=== PATIENT | female | born 1940 | race Caucasian/White ===

== ENCOUNTER → 2017-04-05 | Outpatient (CLI) | payer BC ==
[~2017-04-05] MED LIST: ALBUAER2 INH; ALL180 PO; CLTP PO; CONJ0.3T3 PO; FLVHFA110 INH; HYZ/50125 PO; IBUP-1050 PO; LRT5 PO; MEDR2.5T PO; VITA400C15 PO
--- NOTE | 2017-04-05 16:30 | MAMMOGRAPHY REPORT ---
BILATERAL DIGITAL SCREENING MAMMOGRAM TOMOSYNTHESIS WITH CAD: 04/05/2017 CLINICAL HISTORY: Routine screening. Patient has no complaints. TECHNIQUE: Breast tomosynthesis in addition to standard 2D mammography was performed. Current study was also evaluated with a Computer Aided Detection (CAD) system. COMPARISON: Comparison is made to exams dated: 04/17/2016 mammogram, 04/04/2016 mammogram, 03/23/2015 m ammogram, and 03/10/2014 mammogram - [facility]. BREAST COMPOSITION: There are scattered areas of fibroglandular density in both breasts. FINDINGS: No suspicious masses, calcifications, or areas of architectural distortion are noted in e ither breast. There has been no significant interval change compared to prior exams. Bilateral chasity gn appearing calcifications are not significantly changed. A linear scar marker denotes a scar on t he right upper outer breast. IMPRESSION: ACR BI-RADS CATEGORY 2: BENIGN There is no mammographic evidence of malignancy. A 1 year screening mammogram is recommended. The p atient will receive written notification of the results. Approximately 10% of breast cancers are not detected with mammography. A negative mammographic repor t should not delay biopsy if a clinically suggestive mass is present. Mary Conte M.D. /:04/05/2017 16:05:54 Sales And Service Engineer: Negra CONNER(Serjio)(Tejal)(BD), [facility] letter sent: Normal 1/2 BI-RADS Code: ACR BI-RADS Category 2: Benign
== END | disposition home or self-care (01) ==
LOC: C.MAMM 14:03
PROVIDERS: ATTEND Family Medicine
DX: Z12.31 Encounter for screening mammogram for malignant neoplasm of breast (principal)

== ENCOUNTER → 2018-04-07 | Outpatient (CLI) | payer BC ==
--- NOTE | 2018-04-08 13:18 | MAMMOGRAPHY REPORT ---
BILATERAL DIGITAL SCREENING MAMMOGRAM TOMOSYNTHESIS WITH CAD: 04/07/2018 CLINICAL HISTORY: Routine screening. Patient has no complaints. TECHNIQUE: Breast tomosynthesis in addition to standard 2D mammography was performed. Current study was also evaluated with a Computer Aided Detection (CAD) system. COMPARISON: Comparison is made to exams dated: 04/05/2017 mammogram, 04/17/2016 mammogram, 04/04/2016 m ammogram, 03/23/2015 mammogram, 03/10/2014 mammogram, and 03/09/2013 mammogram - [facility]ter. BREAST COMPOSITION: There are scattered areas of fibroglandular density in both breasts. FINDINGS: There are scattered benign rim calcifications and stable very faint punctate microcalcifica tions in the lateral aspect of each breast. Minimal vascular calcification as well. No suspicious m ass, architectural distortion or cluster of microcalcifications is seen. IMPRESSION: ACR BI-RADS CATEGORY 1: NEGATIVE There is no mammographic evidence of malignancy. A 1 year screening mammogram is recommended. The pa tient will receive written notification of the results. Approximately 10% of breast cancers are not detected with mammography. A negative mammographic report should not delay biopsy if a clinically suggestive mass is present. Dipika Braxton M.D. ay/:04/08/2018 07:44:31 Manager Office Services: Negra CONNER(Serjio)(Tejal)(BD), [facility] letter sent: Normal 1/2 BI-RADS Code: ACR BI-RADS Category 1: Negative
== END | disposition home or self-care (01) ==
LOC: C.MAMM 14:02
PROVIDERS: ATTEND Family Medicine
DX: Z12.31 Encounter for screening mammogram for malignant neoplasm of breast (principal)

== ENCOUNTER 2024-07-27 21:20 | Inpatient (IN) ==
--- NOTE | 2024-07-27 21:37 | Emergency Department Note ---
Impression & Plan SDH (subdural hematoma), Respiratory failure ED Provider Note NAME: BRETT PHIPPS AGE: 84 SEX: F : 1940 ARRIVES VIA: Ambulance INFORMANT: Patient, ED PROVIDER(S): Alli Vasquez MD CHIEF COMPLAINT: Unresponsive MEDICAL DECISION MAKING: Patient presents due to concern for unresponsiveness. Patient was assessed airway was secured. The patient did not have obvious breath sounds in the left chest and the ET tube appeared to be deep at that time. The patient did have a palpable carotid pulse. ET tube was retracted 24 cm and the patient seemed to have improvement and associated breath sounds in the left chest. Blood work was obtained at this time additional measures were made to facilitate the patient going to CAT scan [id number] BMP was ordered along with cefepime and Flagyl and sepsis protocols. Patient was [id number] BMP was unremarkable. CT of the head did show concern for large SDH with associated shift. I was very concerned about the patient's prognosis. I did speak with the and after discussion he stated that she would not want aggressive measures or surgery which may or may not entail decompression craniectomy. He was going to call his daughter to arrive here and thus we will keep the patient intubated at this time but will not pursue any additional measures. is comfortable with this plan and I did explain to him that this may be something where the patient does not survive more than minutes versus hours. He understands and the patient is DNR and no additional treatments at this time. I did speak with the on-call hospitalist Dr. Arias as well as the intensive care unit CHUYITA Burak [facility]. Patient was admitted to the intensive care unit. Blood work shows a white count of 12 with a normal hemoglobin and platelet count patient's kidney function is unremarkable with normal electrolytes. Blood sugar 152. Procalcitonin is negative. Critical Care: I have personally spent 80 minutes of critical care time in direct management of this patient. This includes bedside care, interpretation of diagnostic studies, and testing, discussion with consultants, patient, and family members, and other require inpatient management activities. This 80 minutes is in excess of all separately billable procedures. Discussion w/ other healthcare providers: Dr. Arias inpatient medicine service [facility] ICU w/ Dr. Mendoza Prior /Outside records reviewed: I reviewed part of a cardiology visit note from February 04, 2024 from Bernard Delgado. Patient with known history of A-fib and flutter. Differential diagnosis: ICH, skull fracture, medication side effect, sprain, strain, pneumonia among others were considered. Diagnostics, as interpreted by me: ECG: None Cardiac monitoring: An order was placed for continuous cardiac monitoring. The monitor shows a rate of 62 with sinus rhythm. Patient was placed on pulse oximetry Medical decision rules: None Imaging studies: I informally interpreted the patient's CT head shows large left-sided subdural with shift with formal report to follow. HPI: Patient presents via EMS due to concern for unresponsiveness. Patient was reportedly at [place] for some sort of meeting and had gone to the bathroom but not seen for a brief period of time and so did go check on the patient and she was found down and unresponsive and not breathing well with associated vomiting. EMS reports that when they got there they were concerned as the patient had vomited and she was bradycardic and they started pacing the patient. I did suggest that the patient be given atropine calcium and Narcan. They report that she is a resident at [facility] and initially was thought to be in her 60s but per review of the patient's name and date of she is in her 80s. She is on Xarelto. The patient no longer required pacing and routes but did require intubation due to concern for airway protection and unresponsiveness. They were able to get a blood pressure in the 150s and the patient's sugar was greater than 100. EMS did report they thought that she had decerebrate posturing. I did gather additional history from the patient's after her initial exam and orders being placed. He reports that she had been fine today and had just gone to the restroom and then he found her in in a virtually unresponsive state. PAST MEDICAL HISTORY: See Below PAST SURGICAL HISTORY: See Below SOCIAL HISTORY: See Below HOME MEDICATIONS: See Below ALLERGIES: See Below VITALS: See Below PHYSICAL EXAMINATION: GENERAL: Severe distress, intubated. EYE EXAM: Normal conjunctiva. PERRL, slight left greater than right anisocoria sluggish. OROPHARYNX: Moist mucus membranes, grossly normal dentition. NECK: Trachea midline, no stridor. Supple, no nuchal rigidity, no adenopathy, non-tender. No signs of meningismus. FROM of the neck with good chin to chest and neck extension. LUNGS: Clear to auscultation. Normal chest wall mechanics. HEART: NSR, no MRG. ABDOMEN: Abdomen soft, nondistended. SKIN: No rashes and no bruising. UPPER EXTREMITIES: Upper extremities are grossly normal. LOWER EXTREMITIES: Grossly normal, no edema. NEURO EXAM: GCS of 3T. Past Med/Surg History Problem List (Updated 07/27/24 @ 23:31 by Alli Vasquez MD) Respiratory failure (Acute) SDH (subdural hematoma) (Acute) Gross hematuria Abnormal PFT Upper airway cough syndrome Cough PSVT (paroxysmal supraventricular tachycardia) Paroxysmal atrial flutter Paroxysmal atrial fibrillation Sensation of chest pressure Hypertension Encounter for pre-operative examination Medical History (Updated 07/27/24 @ 23:31 by Alli Vasquez MD) Chronic back pain Osteoarthritis Basal cell carcinoma Hypertension Asthma well controlled, uses inhalers prn and have not needed since June 2019 On anticoagulant therapy Paroxysmal atrial fibrillation Surgical History Hx of left cataract extraction History of breast biopsy right History of bilateral tubal ligation History of section x2 S/P epidural steroid injection History of colonoscopy Status post Mohs surgery Family History Other No family history of adverse response to anesthesia Social History Smoking Status: Unknown if ever smoked Second Hand Exposure: No; Do You Dip or Chew Tobacco: No; Hx Alcohol Use: No Hx Substance Use: No Preferred Language: Puerto Rican Communication Ability: Effective Prn Physical Therapist Required: No Beliefs That Will Affect Care: None Current Living Situation: Spouse Feels Safe at Home: Yes Assistive Devices: Glasses Allergies Allergies Allergy/AdvReac Type Severity Reaction Status Date / Time Penicillins Allergy Mild HIVES Verified 02/05/24 10:31 FRAGRANCES Allergy Severe COUGH AND Uncoded 02/05/24 10:31 SOB Home Meds Home Medications Medication Instructions Recorded Confirmed cetirizine 10 mg tablet 10 mg PO QAM 06/22/19 12/20/22 montelukast 10 mg tablet 10 mg PO HS 06/22/19 12/20/22 rivaroxaban 20 mg tablet (Xarelto) 20 mg PO HS 07/21/19 12/20/22 multivitamin (Daily Multi-Vitamin 1 tab PO DAILY 09/15/19 12/20/22 tablet) fluticasone furoate 100 1 inh inhalation DAILY 12/18/22 12/20/22 mcg-vilanterol 25 mcg/dose inhalation powder (Breo Ellipta) Previous Rx's Medication Instructions Recorded Allergy (chlorpheniramine) 4 mg 4 mg PO Q12H cough 8 weeks #112 12/27/22 tablet (chlorpheniramine maleate) tabs fluticasone propionate 50 2 spray intranasal DAILY #16 grams 12/27/22 mcg/actuation nasal spray,suspension (Flonase Allergy Relief) diltiazem HCl 240 mg 240 mg PO QAM #90 caps 01/16/24 capsule,extended release 24 hr levalbuterol tartrate 45 1 puff inhalation Q6H PRN 02/05/24 mcg/actuation aerosol inhaler shortness of breath or wheezing (Xopenex HFA) #15 grams Results & Data (ED) Vital Signs Vital Signs - 24 hr 07/27/24 21:27 07/27/24 21:39 07/27/24 21:50 Pulse Rate 75 Pulse Rate [Finger] 67 Pulse Rhythm Pulse Rhythm [Finger] Regular Pulse Strength [Finger] Normal Respiratory Rate 23 20 Respiratory Effort / Characteristics Non-Labored Spontaneous Non-Labored Spontaneous Respiratory Depth Normal Normal Blood Pressure Blood Pressure [Right Arm] 203/118 H Blood Pressure Mean Blood Pressure Mean [Right Arm] 146 Pulse Oximetry 93 98 Oxygen Delivery Method Mechanical Vent Mechanical Vent Fraction of Inspired Oxygen Sepsis Recent Fever Within 48 Hours No Sepsis New/Unexplained Change in Mental Status N/A Sepsis Action Taken by Nursing No Action Required End-Tidal CO2 07/27/24 21:51 07/27/24 21:52 07/27/24 22:14 Pulse Rate 56 L 64 62 Pulse Rate [Finger] Pulse Rhythm Regular Pulse Rhythm [Finger] Pulse Strength [Finger] Respiratory Rate 23 18 31 H Respiratory Effort / Characteristics Respiratory Depth Blood Pressure 203/118 H Blood Pressure [Right Arm] Blood Pressure Mean 169 Blood Pressure Mean [Right Arm] Pulse Oximetry 97 99 Oxygen Delivery Method Mechanical Vent Mechanical Vent Fraction of Inspired Oxygen 60 Sepsis Recent Fever Within 48 Hours Sepsis New/Unexplained Change in Mental Status Sepsis Action Taken by Nursing End-Tidal CO2 38 33 07/27/24 22:53 Pulse Rate Pulse Rate [Finger] 49 L Pulse Rhythm Pulse Rhythm [Finger] Pulse Strength [Finger] Respiratory Rate 18 Respiratory Effort / Characteristics Respiratory Depth Blood Pressure Blood Pressure [Right Arm] 169/115 H Blood Pressure Mean Blood Pressure Mean [Right Arm] 133 Pulse Oximetry 96 Oxygen Delivery Method Mechanical Vent Fraction of Inspired Oxygen Sepsis Recent Fever Within 48 Hours Sepsis New/Unexplained Change in Mental Status Sepsis Action Taken by Nursing End-Tidal CO2 Home Medications Current Medication List: was personally reviewed by me Laboratory Data Attestation: I reviewed the patient's lab results. 07/27/24 21:33 07/27/24 21:33 Lab Results 07/27/24 07/27/24 Range/Units 21:33 21:35 WBC 12.57 H (4.8-10.8) K/ul RBC 4.31 (4.20-5.40) M/uL Hgb 13.0 (12.0-16.0) g/dl POC Hgb 13.3 (12.0-16.0) g/dl Hct 38.0 (37.0-47.0) % POC Hct 39 (37-47) % MCV 88.2 (80.0-100.0) fL MCH 30.2 (25.0-34.0) pg MCHC 34.2 (32.0-36.0) g/dL RDW Std Deviation 43.8 (36.4-46.3) fL RDW Coeff of [place] 13.3 (11.5-14.5) % Plt Count 267 (130-400) K/uL MPV 9.1 L (9.4-12.4) fL Immature Gran % (Auto) 0.4 % Neut % (Auto) 71.0 % Lymph % (Auto) 21.7 % Lee % (Auto) 5.6 % Eos % (Auto) 0.8 % Baso % (Auto) 0.5 % Neut # (Auto) 8.92 H (1.40-6.50) K/uL Lymph # (Auto) 2.73 (1.20-3.40) K/uL Lee # (Auto) 0.71 H (0.11-0.59) K/uL Eos # (Auto) 0.10 (0.00-0.50) K/uL Baso # (Auto) 0.06 (0.00-0.20) K/uL Immature Gran # (Auto) 0.05 (0.01-0.20) K/uL PT 12.1 H (9.0-12.0) Seconds INR 1.1 (0.9-1.1) APTT 27 (21-31) Seconds PTT Ratio 1.0 POC Sodium 139 (135-144) mmol/L Sodium 137 (136-145) mmol/L POC Potassium 4.0 (3.3-5.0) mmol/L Potassium 4.0 (3.5-5.1) mmol/L POC Chloride 106 (101-112) mmol/L Chloride 105 (98-107) mmol/L Carbon Dioxide 24 (21-32) mmol/L POC Total CO2 24 (24-31) mmol/L Anion Gap 8 (3-11) POC Anion Gap 14.0 L (16-25) mmol/L POC BUN 19 H (7-18) mg/dl BUN 19 (6-23) mg/dl Creatinine 0.87 (0.6-1.2) mg/dl POC Creatinine 0.9 (0.6-1.3) mg/dl Est Cr Clr Drug Dosing Not Reportable Est GFR ( Amer) 71.9 ml/min Est GFR (Non-Af Amer) 62.0 ml/min BUN/Creatinine Ratio 21.8 H (10-20) Glucose 152 H (70-99(Fasting)) mg/dl POC Glucose (other) 152 H (70-99) mg/dl Lactate 2.0 (0.4-2.0) mmol/L Calcium 10.1 (8.6-10.3) mg/dl POC Ioniz Calcium Arnold 1.33 H (1.12-1.32) mmol/l Magnesium 1.8 (1.7-2.4) mg/dl Total Bilirubin 0.4 (0.2-1.0) mg/dl Direct Bilirubin TNP AST 23 (13-39) U/L ALT 12 (7-52) U/L Alkaline Phosphatase 92 (34-104) U/L Troponin I High Sens 3.6 (0-14) pg/ml Total Protein 6.9 (6.0-8.3) gm/dl Albumin 4.0 (3.4-5.0) gm/dl Procalcitonin < 0.02 (0-0.5) ng/ml Administered Medications Discontinued Medications Sodium Chloride (Nss) 500 mls @ 999 mls/hr IV .Q31M ALAN Stop: 07/27/24 22:00 Last Admin: 07/27/24 22:49 Dose: Not Given Documented By: WILD Cefepime HCl (Maxipime) 2,000 mg in 20 mls @ 5 mls/min IV NOW STA; Protocol Stop: 07/27/24 21:33 Last Admin: 07/27/24 22:49 Dose: Not Given Documented By: WILD Metronidazole (Flagyl) 500 mg in 100 mls @ 100 mls/hr IV NOW STA; Protocol Stop: 07/27/24 22:29 Last Admin: 07/27/24 22:49 Dose: Not Given Documented By: WILD Imaging Data Radiologist's Impression: Head CT 07/27/24 21:24 CR Exam(s): CT HEAD Without Contrast EXAM: CT Head Without Intravenous Contrast CLINICAL HISTORY: Reason for exam: unresponsive. TECHNIQUE: Axial computed tomography images of the head/brain without intravenous contrast. CTDI is 29.23 mGy and DLP is 448.01 mGy-cm. Automated exposure control was utilized for the study. A dose lowering technique was utilized adhering to the principles of ALARA. COMPARISON: No relevant prior studies available. FINDINGS: Brain: There is the large acute left-sided subdural hematoma measuring 2.2 cm. There is a 1.8 cm left to right midline shift. No significant white matter disease. Ventricles: There is a trace amount of periventricular white matter low density and slight prominence of the temporal horn of the right lateral ventricle suggesting developing hydrocephalus. Bones/joints: Unremarkable. No acute fracture. Soft tissues: Unremarkable. Sinuses: Unremarkable as visualized. No acute sinusitis. Mastoid air cells: Unremarkable as visualized. No mastoid effusion. IMPRESSION: 1. There is the large acute left-sided subdural hematoma measuring 2.2 cm. There is a 1.8 cm left to right midline shift. 2. There is a trace amount of periventricular white matter low density and slight prominence of the temporal horn of the right lateral ventricle suggesting developing hydrocephalus. Communications: Call Doctor Intracranial Hemorrhage Electronically signed by: Kev Phipps MD 07/27/24 22:17 PM Discharge Plan Visit Data Chief Complaint: Unresponsive Stated Complaint: UNRESPONSIVE ED Provider: Alli Vasquez Discharge Problem: SDH (subdural hematoma), Respiratory failure Forms Stand Alone Forms: [facility] Prescriptions Prescriptions: No Action diltiazem HCl 240 mg capsule,extended release 24hr 240 mg PO QAM Qty: 90 3RF cetirizine 10 mg tablet 10 mg PO QAM montelukast 10 mg tablet 10 mg PO HS multivitamin [Daily Multi-Vitamin] tablet 1 tab PO DAILY fluticasone propionate [Flonase Allergy Relief] 50 mcg/actuation spray,suspension 2 spray intranasal DAILY Qty: 16 3RF Rx Instructions: administer into each nostril chlorpheniramine maleate [Allergy (chlorpheniramine)] 4 mg tablet 4 mg PO Q12H 56 Days Qty: 112 0RF Xarelto 20 mg tablet 20 mg PO HS fluticasone furoate-vilanterol [Breo Ellipta] 100-25 mcg/dose blister with device 1 inh inhalation DAILY levalbuterol tartrate [Xopenex HFA] 45 mcg/actuation HFA aerosol inhaler 1 puff INH Q6H PRN (Reason: shortness of breath or wheezing) Qty: 15 11RF Referrals Referrals: Vadim Dotson [Non-Staff] - Discharge Problem: Respiratory failure Qualifiers: Chronicity: acute Respiratory failure complication: unspecified whether with hypoxia or hypercapnia Qualified Code(s): J96.00 - Acute respiratory failure, unspecified whether with hypoxia or hypercapnia
[2024-07-27 21:48] LABS: Basophils # (auto) 0.06 K/uL (0.00-0.20); Basophils % (auto) 0.5 %; Eosinophils % (auto) 0.8 %; Immature Granulocytes # (auto) 0.05 K/uL (0.01-0.20); Immature Granulocytes % (auto) 0.4 %; Lymphocytes # (auto) 2.73 K/uL (1.20-3.40); Lymphocytes % (auto) 21.7 %; Mean Corpuscular Hemoglobin 30.2 pg (25.0-34.0); Mean Corpuscular Hgb Conc 34.2 g/dL (32.0-36.0); Mean Corpuscular Volume 88.2 fL (80.0-100.0); Mean Platelet Volume 9.1 fL (9.4-12.4); Monocytes # (auto) 0.71 K/uL (0.11-0.59); Monocytes % (auto) 5.6 %; Neutrophils # (auto) 8.92 K/uL (1.40-6.50); Platelet Count 267 K/uL (130-400); RDW Coefficient of Variation 13.3 % (11.5-14.5); RDW Standard Deviation 43.8 fL (36.4-46.3); Red Blood Count 4.31 M/uL (4.20-5.40); White Blood Count 12.57 K/ul (4.8-10.8)
[2024-07-27 21:48] LABS: iSTAT Creatinine 0.9 mg/dl (0.6-1.3); iSTAT Hemoglobin 13.3 g/dl (12.0-16.0); iSTAT Ionized Calcium 1.33 mmol/l (1.12-1.32)
[2024-07-27 22:15] LABS: Alanine Aminotransferase 12 U/L (7-52); Alkaline Phosphatase 92 U/L (34-104); Anion Gap 8 (3-11); Aspartate Aminotransferase 23 U/L (13-39); BUN Creatinine Ratio 21.8 (10-20); Bilirubin,Total 0.4 mg/dl (0.2-1.0); Blood Urea Nitrogen 19 mg/dl (6-23); Calcium 10.1 mg/dl (8.6-10.3); Carbon Dioxide 24 mmol/L (21-32); Chloride 105 mmol/L (98-107); Est GFR (African American) 71.9 ml/min; Glucose 152 mg/dl (70-99(Fasting)); INR 1.1 (0.9-1.1); Magnesium 1.8 mg/dl (1.7-2.4); Partial Thromboplastin Time 27 Seconds (21-31); Prothrombin Time 12.1 Seconds (9.0-12.0); Sodium 137 mmol/L (136-145); Total Protein 6.9 gm/dl (6.0-8.3); Troponin I High Sensitivity 3.6 pg/ml (0-14)
--- NOTE | 2024-07-27 22:18 | CT Scan Report ---
Exam(s): CT HEAD Without Contrast EXAM: CT Head Without Intravenous Contrast CLINICAL HISTORY: Reason for exam: unresponsive. TECHNIQUE: Axial computed tomography images of the head/brain without intravenous contrast. CTDI is 29.23 mGy and DLP is 448.01 mGy-cm. Automated exposure control was utilized for the study. A dose lowering technique was utilized adhering to the principles of ALARA. COMPARISON: No relevant prior studies available. FINDINGS: Brain: There is the large acute left-sided subdural hematoma measuring 2.2 cm. There is a 1.8 cm left to right midline shift. No significant white matter disease. Ventricles: There is a trace amount of periventricular white matter low density and slight prominence of the temporal horn of the right lateral ventricle suggesting developing hydrocephalus. Bones/joints: Unremarkable. No acute fracture. Soft tissues: Unremarkable. Sinuses: Unremarkable as visualized. No acute sinusitis. Mastoid air cells: Unremarkable as visualized. No mastoid effusion. IMPRESSION: 1. There is the large acute left-sided subdural hematoma measuring 2.2 cm. There is a 1.8 cm left to right midline shift. 2. There is a trace amount of periventricular white matter low density and slight prominence of the temporal horn of the right lateral ventricle suggesting developing hydrocephalus. Communications: Call Doctor Intracranial Hemorrhage Electronically signed by: Kev Phipps MD 07/27/24 22:17 PM
[2024-07-27] MEDS: SODIUM CHLORIDE 0.9% 500 ML IV SCH (22:49)
[2024-07-27] MEDS: metroNIDAZOLE 500 MG/100 ML BAG IV STA (22:49)
[2024-07-27] MEDS: CEFEPIME 2,000 MG/20 ML VIAL IV STA (22:49)
[2024-07-27 23:32] LABS: Adenovirus PCR Not Detected (NotDetected); Bordetella parapertussis PCR Not Detected (NotDetected); Bordetella pertussis PCR Not Detected (NotDetected); Chlamydia pneumoniae PCR Not Detected (NotDetected); Coronavirus 229E PCR Not Detected (NotDetected); Coronavirus CoV-2 (COVID19)PCR Not Detected (NotDetected); Coronavirus HKU1 PCR Not Detected (NotDetected); Coronavirus NL63 PCR Not Detected (NotDetected); Coronavirus OC43PCR Not Detected (NotDetected); Human Metapneumovirus PCR Not Detected (NotDetected); Influenza A PCR Not Detected (NotDetected); Influenza B PCR Not Detected (NotDetected); Mycoplasma pneumoniae PCR Not Detected (NotDetected); Parainfluenza Virus 1 PCR Not Detected (NotDetected); Parainfluenza Virus 2 PCR Not Detected (NotDetected); Parainfluenza Virus 3 PCR Not Detected (NotDetected); Parainfluenza Virus 4 PCR Not Detected (NotDetected); Respiratory Syncytial VirusPCR Not Detected (NotDetected); Rhinovirus/Enterovirus PCR Not Detected (NotDetected)
--- NOTE | 2024-07-27 23:50 | History & Physical Report ---
Date of Service July 27, 2024 Assessment & Plan (1) Admitted to intensive care unit: (2) SDH (subdural hematoma): (3) Respiratory failure: (4) Paroxysmal atrial fibrillation: (5) Paroxysmal atrial flutter: (6) Hypertension: Plan Large subdural hematoma- CT scan of head with large acute left-sided subdural hematoma measuring 2.2 cm. There is a 1.8 cm left to right midline shift Patient is intubated, on the ventilator, and admitted to the ICU NPO Family members are coming in from out of town, and request patient be kept intubated until other family members are here Paroxysmal atrial fibrillation/flutter- Patient is bradycardic while in the ED, with heart rate in the upper 40s to 50s Holding oral medications including Xarelto, diltiazem Expect the patient will be changed to GOLF COURSE ASSISTANT once all family members are here and family discusses ongoing wishes History of Present Illness Chief Complaint: The patient's reports that he found the patient slumped backward on the commode in the restroom at [facility] where she was at a meeting, earlier this evening. He called emergency services, who when assessed the patient and found that she was bradycardic and had vomited, and she was externally paced. She was given atropine, calcium and Narcan. She was intubated for airway protection, and due to unresponsiveness. EMS also reported to that they thought she had decerebrate posturing. In the emergency department, patient underwent a CT scan of head which showed a large left subdural hematoma, with shift. Primary Care Provider: Lino Fan MD The patient is an 84-year-old female with a past medical history including paroxysmal atrial fibrillation/flutter, hypertension, COPD, allergic rhinitis, on chronic anticoagulation, who was found unresponsive as noted above. CT scan of head showed a large subdural hematoma with shift. The patient is intubated, and family wishes that she be kept alive until her daughter arrives from out of town. Allergies Allergy/AdvReac Type Severity Reaction Status Date / Time Penicillins Allergy Mild HIVES Verified 02/05/24 10:31 FRAGRANCES Allergy Severe COUGH AND Uncoded 02/05/24 10:31 SOB Home Medications Medication Instructions Recorded Confirmed Type cetirizine 10 mg tablet 10 mg PO QAM 06/22/19 12/20/22 History montelukast 10 mg tablet 10 mg PO HS 06/22/19 12/20/22 History rivaroxaban 20 mg tablet (Xarelto) 20 mg PO HS 07/21/19 12/20/22 History multivitamin (Daily Multi-Vitamin 1 tab PO DAILY 09/15/19 12/20/22 History tablet) fluticasone furoate 100 1 inh inhalation DAILY 12/18/22 12/20/22 History mcg-vilanterol 25 mcg/dose inhalation powder (Breo Ellipta) Allergy (chlorpheniramine) 4 mg 4 mg PO Q12H cough 8 weeks #112 12/27/22 12/27/22 Rx tablet (chlorpheniramine maleate) tabs fluticasone propionate 50 2 spray intranasal DAILY #16 grams 12/27/22 12/27/22 Rx mcg/actuation nasal spray,suspension (Flonase Allergy Relief) diltiazem HCl 240 mg 240 mg PO QAM #90 caps 01/16/24 Rx capsule,extended release 24 hr levalbuterol tartrate 45 1 puff inhalation Q6H PRN 02/05/24 02/05/24 Rx mcg/actuation aerosol inhaler shortness of breath or wheezing (Xopenex HFA) #15 grams Past Med/Surg History Problem List (Updated 07/28/24 @ 02:53 by Carlos Lawler MD) Admitted to intensive care unit Respiratory failure (Acute) SDH (subdural hematoma) (Acute) Gross hematuria Abnormal PFT Upper airway cough syndrome Cough PSVT (paroxysmal supraventricular tachycardia) Paroxysmal atrial flutter Paroxysmal atrial fibrillation Sensation of chest pressure Hypertension Encounter for pre-operative examination Medical History (Updated 07/28/24 @ 02:53 by Carlos Lawler MD) Chronic back pain Osteoarthritis Basal cell carcinoma Hypertension Asthma well controlled, uses inhalers prn and have not needed since June 2019 On anticoagulant therapy Paroxysmal atrial fibrillation Surgical History Hx of left cataract extraction History of breast biopsy right History of bilateral tubal ligation History of section x2 S/P epidural steroid injection History of colonoscopy Status post Mohs surgery Family History Other No family history of adverse response to anesthesia Social History Smoking Status: Unknown if ever smoked Second Hand Exposure: No; Do You Dip or Chew Tobacco: No; Hx Alcohol Use: No Hx Substance Use: No Preferred Language: Latvian Communication Ability: Impaired Communication Ability Comment: impaired due to medical reason at this time Business Analyst Required: No Beliefs That Will Affect Care: None Current Living Situation: Spouse Other Information That Helps Us Care for You: No Feels Safe at Home: Yes Safety Concerns: Feels Safe At This Time Assistive Devices: Glasses Review of Systems Review of Systems: The patient is unable to contribute HPI or review of systems due to unresponsive and intubated state. Her and EMS provides information as noted above Physical Exam Physical Exam: The patient is unresponsive, and intubated on the ventilator. HEENT--PERRL, EOMI, mucous membranes and oropharynx dry. Neck--supple. No JVD. No bruits. Thyroid normal, trachea midline, no adenopathy. Heart--bradycardic. No murmurs, rubs or gallops. Lungs--decreased breath sounds left base. No respiratory distress, no accessory muscle use. Abdomen--normal bowel sounds and soft. Nontender. Nondistended. Obese Extremities--No edema. Dermatologic--normal skin turgor, normal color, no abnormal lymph nodes, no rash. Neurologic--limited exam. Rheumatologic--limited exam Psychiatric--unresponsive and intubated Results & Data Results & Data Vital Signs (Past 12 Hours) Vital Signs Pulse Pulse Resp BP BP Pulse Ox O2 Del Method 07/27/24 22:53 49 L 18 169/115 H 96 Mechanical Vent 07/27/24 22:14 62 31 H 99 07/27/24 21:52 64 18 Mechanical Vent 07/27/24 21:51 56 L 23 203/118 H 97 Mechanical Vent 07/27/24 21:50 67 20 203/118 H 98 Mechanical Vent 07/27/24 21:39 23 93 Mechanical Vent 07/27/24 21:27 75 FiO2 07/27/24 22:53 07/27/24 22:14 60 07/27/24 21:52 07/27/24 21:51 07/27/24 21:50 07/27/24 21:39 07/27/24 21:27 Laboratory Results Laboratory Results WBC 12.57 K/ul (4.8-10.8) H 07/27/24 21:33 RBC 4.31 M/uL (4.20-5.40) 07/27/24 21:33 Hgb 13.0 g/dl (12.0-16.0) 07/27/24 21:33 POC Hgb 13.3 g/dl (12.0-16.0) 07/27/24 21:35 Hct 38.0 % (37.0-47.0) 07/27/24 21:33 POC Hct 39 % (37-47) 07/27/24 21:35 MCV 88.2 fL (80.0-100.0) 07/27/24 21:33 MCH 30.2 pg (25.0-34.0) 07/27/24 21:33 MCHC 34.2 g/dL (32.0-36.0) 07/27/24 21:33 RDW Std Deviation 43.8 fL (36.4-46.3) 07/27/24 21:33 RDW Coeff of [place] 13.3 % (11.5-14.5) 07/27/24 21:33 Plt Count 267 K/uL (130-400) 07/27/24 21:33 MPV 9.1 fL (9.4-12.4) L 07/27/24 21:33 Immature Gran % (Auto) 0.4 % 07/27/24 21:33 Neut % (Auto) 71.0 % 07/27/24 21:33 Lymph % (Auto) 21.7 % 07/27/24 21:33 Sutton % (Auto) 5.6 % 07/27/24 21:33 Eos % (Auto) 0.8 % 07/27/24 21:33 Baso % (Auto) 0.5 % 07/27/24 21:33 Neut # (Auto) 8.92 K/uL (1.40-6.50) H 07/27/24 21:33 Lymph # (Auto) 2.73 K/uL (1.20-3.40) 07/27/24 21:33 Sutton # (Auto) 0.71 K/uL (0.11-0.59) H 07/27/24 21:33 Eos # (Auto) 0.10 K/uL (0.00-0.50) 07/27/24 21:33 Baso # (Auto) 0.06 K/uL (0.00-0.20) 07/27/24 21:33 Immature Gran # (Auto) 0.05 K/uL (0.01-0.20) 07/27/24 21:33 PT 12.1 Seconds (9.0-12.0) H 07/27/24 21:33 INR 1.1 (0.9-1.1) 07/27/24 21:33 APTT 27 Seconds (21-31) 07/27/24 21:33 PTT Ratio 1.0 07/27/24 21:33 POC Sodium 139 mmol/L (135-144) 07/27/24 21:35 Sodium 137 mmol/L (136-145) 07/27/24 21:33 POC Potassium 4.0 mmol/L (3.3-5.0) 07/27/24 21:35 Potassium 4.0 mmol/L (3.5-5.1) 07/27/24 21:33 POC Chloride 106 mmol/L (101-112) 07/27/24 21:35 Chloride 105 mmol/L (98-107) 07/27/24 21:33 Carbon Dioxide 24 mmol/L (21-32) 07/27/24 21:33 POC Total CO2 24 mmol/L (24-31) 07/27/24 21:35 Anion Gap 8 (3-11) 07/27/24 21:33 POC Anion Gap 14.0 mmol/L (16-25) L 07/27/24 21:35 POC BUN 19 mg/dl (7-18) H 07/27/24 21:35 BUN 19 mg/dl (6-23) 07/27/24 21:33 Creatinine 0.87 mg/dl (0.6-1.2) 07/27/24 21:33 POC Creatinine 0.9 mg/dl (0.6-1.3) 07/27/24 21:35 Est Cr Clr Drug Dosing Not Reportable 07/27/24 21:33 Est GFR ( Amer) 71.9 ml/min 07/27/24 21:33 Est GFR (Non-Af Amer) 62.0 ml/min 07/27/24 21:33 BUN/Creatinine Ratio 21.8 (10-20) H 07/27/24 21:33 Glucose 152 mg/dl (70-99(Fasting)) H 07/27/24 21:33 POC Glucose (other) 152 mg/dl (70-99) H 07/27/24 21:35 Lactate 2.0 mmol/L (0.4-2.0) 07/27/24 21:33 Calcium 10.1 mg/dl (8.6-10.3) 07/27/24 21:33 POC Ioniz Calcium Arnold 1.33 mmol/l (1.12-1.32) H 07/27/24 21:35 Magnesium 1.8 mg/dl (1.7-2.4) 07/27/24 21:33 Total Bilirubin 0.4 mg/dl (0.2-1.0) 07/27/24 21:33 Direct Bilirubin TNP 07/27/24 21:33 AST 23 U/L (13-39) 07/27/24 21:33 ALT 12 U/L (7-52) 07/27/24 21:33 Alkaline Phosphatase 92 U/L (34-104) 07/27/24 21:33 Troponin I High Sens 3.6 pg/ml (0-14) 07/27/24 21:33 Total Protein 6.9 gm/dl (6.0-8.3) 07/27/24 21:33 Albumin 4.0 gm/dl (3.4-5.0) 07/27/24 21:33 Procalcitonin < 0.02 ng/ml (0-0.5) 07/27/24 21:33 Nasal Screen MRSA (PCR) Negative (Negative) 07/27/24 21:55 Adenovirus (PCR) Not Detected (NotDetected) 07/27/24 21:55 B. pertussis DNA (PCR) Not Detected (NotDetected) 07/27/24 21:55 B.parapertussis DNA PCR Not Detected (NotDetected) 07/27/24 21:55 C. pneumoniae DNA (PCR) Not Detected (NotDetected) 07/27/24 21:55 Coronavirus OC43 (PCR) Not Detected (NotDetected) 07/27/24 21:55 Coronavirus HKU1 (PCR) Not Detected (NotDetected) 07/27/24 21:55 Coronavirus 229E (PCR) Not Detected (NotDetected) 07/27/24 21:55 SARS-CoV-2 (PCR) Not Detected (NotDetected) 07/27/24 21:55 Coronavirus NL63 (PCR) Not Detected (NotDetected) 07/27/24 21:55 Human Metapneumovir PCR Not Detected (NotDetected) 07/27/24 21:55 Influenza Type A (PCR) Not Detected (NotDetected) 07/27/24 21:55 Influenza Type B (PCR) Not Detected (NotDetected) 07/27/24 21:55 M. pneumoniae (PCR) Not Detected (NotDetected) 07/27/24 21:55 Parainfluenza 1 (PCR) Not Detected (NotDetected) 07/27/24 21:55 Parainfluenza 2 (PCR) Not Detected (NotDetected) 07/27/24 21:55 Parainfluenza 3 (PCR) Not Detected (NotDetected) 07/27/24 21:55 Parainfluenza 4 (PCR) Not Detected (NotDetected) 07/27/24 21:55 RSV (PCR) Not Detected (NotDetected) 07/27/24 21:55 Entero/Rhino (PCR) Not Detected (NotDetected) 07/27/24 21:[address] 07/27/24 21:24 CR Exam(s): CT HEAD Without Contrast EXAM: CT Head Without Intravenous Contrast CLINICAL HISTORY: Reason for exam: unresponsive. TECHNIQUE: Axial computed tomography images of the head/brain without intravenous contrast. CTDI is 29.23 mGy and DLP is 448.01 mGy-cm. Automated exposure control was utilized for the study. A dose lowering technique was utilized adhering to the principles of ALARA. COMPARISON: No relevant prior studies available. FINDINGS: Brain: There is the large acute left-sided subdural hematoma measuring 2.2 cm. There is a 1.8 cm left to right midline shift. No significant white matter disease. Ventricles: There is a trace amount of periventricular white matter low density and slight prominence of the temporal horn of the right lateral ventricle suggesting developing hydrocephalus. Bones/joints: Unremarkable. No acute fracture. Soft tissues: Unremarkable. Sinuses: Unremarkable as visualized. No acute sinusitis. Mastoid air cells: Unremarkable as visualized. No mastoid effusion. IMPRESSION: 1. There is the large acute left-sided subdural hematoma measuring 2.2 cm. There is a 1.8 cm left to right midline shift. 2. There is a trace amount of periventricular white matter low density and slight prominence of the temporal horn of the right lateral ventricle suggesting developing hydrocephalus. Communications: Call Doctor Intracranial Hemorrhage Electronically signed by: Kev Phipps MD 07/27/24 22:17 PM Code Status & VTE Plan Code Status Conditional code Patient is DNR, presently intubated VTE Prophylaxis Plan VTE Prophylaxis will be ordered: Yes PG Care Time/CCT Total # of Minutes Spent Total Time Spent with Patient: Total time spent is greater than 50% in coordination of care (as documented) at patient's floor/unit and/or counseling patient: Coding Level of Care Code 21165 INT INP/OBS CARE 2/55MIN Diagnoses Admitted to intensive care unit Z78.9 SDH (subdural hematoma) S06.5XAA Respiratory failure J96.00 Chronicity: acute Respiratory failure complication: unspecified whether with hypoxia or hypercapnia Paroxysmal atrial fibrillation I48.0 Paroxysmal atrial flutter I48.92 Primary hypertension I10 Hypertension type: primary hypertension (3) Respiratory failure Chronicity: acute Respiratory failure complication: unspecified whether with hypoxia or hypercapnia Qualified Code(s): J96.00 - Acute respiratory failure, unspecified whether with hypoxia or hypercapnia (6) Hypertension Hypertension type: primary hypertension Qualified Code(s): I10 - Essential (primary) hypertension
[2024-07-28] MEDS ORDERED: STAT IV Infusion **Titration per Protocol STA (01:22)
[2024-07-28 01:27] VITALS: TEMP 97.9
--- NOTE | 2024-07-28 01:31 | Critical Care Consultation ---
Date of Consultation July 28, 2024 Assessment & Plan (1) SDH (subdural hematoma): 84-year-old female with subdural hematoma and large right to left shift with evidence of hydrocephalus seen on CT scan. She is currently posturing and does not follow commands or displaying meaningful movement. It appears that she is offered severe neurological injury with poor prognosis given extent of bleed and neurological exam. Patient's family at the bedside expressed that she would not want life-prolonging measures in the event of severe neurological injury. Patient had previously been intubated as she was unresponsive and is currently mechanically ventilated. Her daughter was approximately 2 hours away, and family was waiting her arrival prior to palliative extubation. Further decisions regarding goals of care were discussed at the bedside and included myself, the patient's , and the patient's daughter. Both family members are in agreements to palliatively extubate after being informed of the patient's poor prognosis, stating that this would be within her wishes. Both and daughter are going home for the evening and wished to proceed with palliative extubation/comfort measures, and wished to be informed when the patient passes. At this time, we will proceed with CLOTH EDGE SINGER measures with palliative extubation along with morphine drip to ensure patient's comfort. I have personally spent 50 minutes of critical care time in the direct management of this patient. This is a life/limb threatening event. This includes time spent evaluating patient, direct bedside care, chart review, placing orders, interpretation of diagnostic studies, discussion with consultants, patient, and family members, as well as other required patient management activities. This time is exclusive of all separately billable procedures, and teaching time and separate from and in addition to any other critical care service time. Thank you for allowing us to participate in the care of this patient. Please refer to my attending physician's documentation for any further recommendations. History of Present Illness Attending Physician: Carlos Lawler MD History of Present Illness Patient is a 84-year-old female W/ PMH of atrial fibrillation, SVT, HTN who presented to the emergency department earlier this evening after being found down and unresponsive while going to the bathroom. Patient was noted to have vomited at the time. She was brought to the emergency department and was emergently intubated. She was taken for CT head, Which showed large left-sided subdural hematoma measuring 2.2 cm with 1.8 cm left to right midline shift with evidence of developing hydrocephalus. Chest x-ray showed evidence of lower lobe infiltrate consistent with aspiration. Given extent of bleed, goals of care were discussed with patient's and ED physician. In conclusion, decision was made to palliatively extubate once the patient's daughter arrives who is about 2 hours away. She has been transferred to ICU for further management pending arrival of other family. Allergies Allergy/AdvReac Type Severity Reaction Status Date / Time Penicillins Allergy Mild HIVES Verified 02/05/24 10:31 FRAGRANCES Allergy Severe COUGH AND Uncoded 02/05/24 10:31 SOB Home Medications Medication Instructions Recorded Confirmed Type cetirizine 10 mg tablet 10 mg PO QAM 06/22/19 12/20/22 History montelukast 10 mg tablet 10 mg PO HS 06/22/19 12/20/22 History rivaroxaban 20 mg tablet (Xarelto) 20 mg PO HS 07/21/19 12/20/22 History multivitamin (Daily Multi-Vitamin 1 tab PO DAILY 09/15/19 12/20/22 History tablet) fluticasone furoate 100 1 inh inhalation DAILY 12/18/22 12/20/22 History mcg-vilanterol 25 mcg/dose inhalation powder (Breo Ellipta) Allergy (chlorpheniramine) 4 mg 4 mg PO Q12H cough 8 weeks #112 12/27/22 12/27/22 Rx tablet (chlorpheniramine maleate) tabs fluticasone propionate 50 2 spray intranasal DAILY #16 grams 12/27/22 12/27/22 Rx mcg/actuation nasal spray,suspension (Flonase Allergy Relief) diltiazem HCl 240 mg 240 mg PO QAM #90 caps 01/16/24 Rx capsule,extended release 24 hr levalbuterol tartrate 45 1 puff inhalation Q6H PRN 02/05/24 02/05/24 Rx mcg/actuation aerosol inhaler shortness of breath or wheezing (Xopenex HFA) #15 grams Patient History Medical History (Updated 07/28/24 @ 02:53 by Carlos Lawelr MD) Chronic back pain Osteoarthritis Basal cell carcinoma Hypertension Asthma well controlled, uses inhalers prn and have not needed since June 2019 On anticoagulant therapy Paroxysmal atrial fibrillation Surgical History Hx of left cataract extraction History of breast biopsy right History of bilateral tubal ligation History of section x2 S/P epidural steroid injection History of colonoscopy Status post Mohs surgery Family History Other No family history of adverse response to anesthesia Social History Smoking Status: Unknown if ever smoked Second Hand Exposure: No; Do You Dip or Chew Tobacco: No; Hx Alcohol Use: No Hx Substance Use: No Preferred Language: Icelandic Communication Ability: Impaired Communication Ability Comment: impaired due to medical reason at this time Building Construction Estimator Required: No Beliefs That Will Affect Care: None Current Living Situation: Spouse Other Information That Helps Us Care for You: No Feels Safe at Home: Yes Safety Concerns: Feels Safe At This Time Assistive Devices: Glasses Review of Systems Review of Systems: Unobtainable due to cognitive status and Unobtainable due to endotracheal tube Physical Exam Constitutional: + mechanically ventilated; no acute dist ress Eyes: Pupils sluggish and unequal with right pupil +3 and left pupil +4. Conjunctive normal ENMT: external ear and nose normal, oropharynx normal Neck: trachea midline, no thyromegaly Respiratory: normal respiratory effort, lungs clear to auscultation Cardiovascular: RRR, no murmur, no edema Heart Sounds: normal S1 and normal S2 Extremities: no edema Gastrointestinal (Abdomen): normal bowel sounds, soft, nontender, no hepatosplenomegaly Musculoskeletal: no cyanosis or clubbing, extremities motor strength 5/5 Skin: no rashes, warm and dry Neurologic: Exam limited due to ET tube. Patient is currently on responsive with posturing movements in all 4 extremities to noxious stimuli. She does not follow commands. Cough and corneals intact but no gag reflex. Pupils are unequal with right pupil +3 and left pupil +4 and are sluggish to react. Psychiatric: Unable to assess Results & Data Results & Data Vital Signs (Past 12 Hours) Vital Signs Pulse Pulse Resp BP BP Pulse Ox O2 Del Method 07/28/24 00:47 64 33 H 96 07/28/24 00:00 54 L 22 184/131 H 99 Mechanical Vent 07/27/24 22:53 49 L 18 169/115 H 96 Mechanical Vent 07/27/24 22:14 62 31 H 99 07/27/24 21:52 64 18 Mechanical Vent 07/27/24 21:51 56 L 23 203/118 H 97 Mechanical Vent 07/27/24 21:50 67 20 203/118 H 98 Mechanical Vent 07/27/24 21:39 23 93 Mechanical Vent 07/27/24 21:27 75 FiO2 07/28/24 00:47 60 07/28/24 00:00 07/27/24 22:53 07/27/24 22:14 60 07/27/24 21:52 07/27/24 21:51 07/27/24 21:50 07/27/24 21:39 07/27/24 21:27 Diagnostic Findings EXAM: CT Head Without Intravenous Contrast CLINICAL HISTORY: Reason for exam: unresponsive. TECHNIQUE: Axial computed tomography images of the head/brain without intravenous contrast. CTDI is 29.23 mGy and DLP is 448.01 mGy-cm. Automated exposure control was utilized for the study. A dose lowering technique was utilized adhering to the principles of ALARA. COMPARISON: No relevant prior studies available. FINDINGS: Brain: There is the large acute left-sided subdural hematoma measuring 2.2 cm. There is a 1.8 cm left to right midline shift. No significant white matter disease. Ventricles: There is a trace amount of periventricular white matter low density and slight prominence of the temporal horn of the right lateral ventricle suggesting developing hydrocephalus. Bones/joints: Unremarkable. No acute fracture. Soft tissues: Unremarkable. Sinuses: Unremarkable as visualized. No acute sinusitis. Mastoid air cells: Unremarkable as visualized. No mastoid effusion. IMPRESSION: 1. There is the large acute left-sided subdural hematoma measuring 2.2 cm. There is a 1.8 cm left to right midline shift. 2. There is a trace amount of periventricular white matter low density and slight prominence of the temporal horn of the right lateral ventricle suggesting developing hydrocephalus. Communications: Call Doctor Intracranial Hemorrhage Electronically signed by: Kev Phipps MD 07/27/24 22:17 PM Coding Level of Care Code 20513 CRITICAL CARE 1ST 30-74M Diagnoses SDH (subdural hematoma) S06.5XAA
[2024-07-28] MEDS: MoRPHine SULF/NSS 100 MG/100 ML BAG IV SCH (01:49)
[2024-07-28] MEDS: MoRPHine BOLUS from BAG IV PRN (01:52)
[2024-07-28] MEDS: ONDANSETRON INJ 2 MG/ML 2 ML VIAL IV PRN (03:48)
[2024-07-28 04:24] VITALS: BP 154/84; PULSE 61; RESP 21; O2SAT 87
[2024-07-28] MEDS ORDERED: ICU Protocol for HYPERglycemia SCH (06:00)
[2024-07-28] MEDS ORDERED: ONDANSETRON INJ 2 MG/ML 2 ML VIAL IV PRN (06:00)
[2024-07-28] MEDS: GLYCOPYRROLATE 0.2 MG/ML VIAL IV PRN (06:09)
--- NOTE | 2024-07-28 06:54 | XRay Report ---
SUPINE PORTABLE AP CHEST RADIOGRAPH CLINICAL HISTORY: Sepsis. COMPARISON STUDY: Chest radiograph December 17, 2022. FINDINGS: Tip of endotracheal tube is at the malou. The tube could be withdrawn 2.5 cm. There is no pneumothorax on supine exam. Multifocal left lung opacities are present. Cardiomediastinal silhouette is unremarkable on supine exam. No evidence for pulmonary edema. IMPRESSION: 1. Tip of endotracheal tube at the malou. The tube could be withdrawn 2.5 cm. 2. Multifocal opacities which could reflect atelectasis or pneumonia/aspiration pneumonitis. [facility] follow-up to ensure resolution is recommended. 3. No pneumothorax. ACT 112: Negative or not required by law. Electronically signed by: Charan Molina M.D. 07/28/2024 6:53 AM
[2024-07-28] MEDS: LORazepam 2 MG/1 ML VIAL IV PRN (08:42)
[2024-07-28] MEDS: ATROPINE SULFATE 1% OP SOLN 5 ML BTL PO PRN (09:08)
--- NOTE | 2024-07-28 21:23 | Hospitalist Progress Note ---
Date of Service July 28, 2024 Assessment & Plan (1) SDH (subdural hematoma): Plan: Patient was found by slumped backward on the commode in the restroom at [place]. EMS found the patient bradycardic and had vomited. She was externally paced, given atropine, calcium, Narcan, and intubated prior to presenting to the ED. EMS also reported decerebrate posturing. - CT head on admission revealed large acute left-sided subdural hematoma measuring 2.2 cm, with a 1.8 cm left to right midline shift. - Patient remained intubated on the ventilator and was admitted to ICU. - Family then decided to transition to comfort measures only. Palliative extubation performed at that time. - Continue morphine gtt per order - Continue as needed atropine drops, glycopyrrolate, lorazepam, morphine, Zofran (2) Comfort measures only status: Plan: As noted above Plan Updated and daughter at bedside Ordered atropine drops CODE STATUS: DNR/DNI, Comfort measures only Admission and Anticipated Discharge Date Admission Date: July 27, 2024 Supervising Physician Co-Signing Physician Notes PA Supervision Note: I did not personally see or examine the patient today, but I verified all monroy points of RADHA Jules' assessment and plan with the following exceptions/additions: None Subjective Patient seen and evaluated at bedside with her and daughter present. Patient continues to remain unresponsive. RN reported increased secretions this morning, which are improved at the time of my evaluation after atropine drops. She does have snoring respirations. No skin mottling is noted at this time. Family encouraged to reach out with any concerns. Physical Exam Physical Exam: General: Unresponsive, snoring respirations, no acute distress. Skin: The skin was without rashes, erythema, edema, or bruising. No mottling no madeline. Cardiac: Bradycardic in the 50s. No murmurs gallops or rubs. Pulm: Rhonchus respirations. Secretions controlled. 87% on 2 L NC. Abdominal: Soft, nontender, nondistended. Bowel sounds present. Neuro: Unresponsive. PG Care Time/CCT Total # of Minutes Spent Total Time Spent with Patient: Total time spent is greater than 50% in coordination of care (as documented) at patient's floor/unit and/or counseling patient: Coding Level of Care Code 97733 SUB INP/OBS CARE 3/50MIN Diagnoses SDH (subdural hematoma) S06.5XAA Comfort measures only status Z51.5
--- NOTE | 2024-07-29 17:03 | Death Pronouncement Note ---
Date of Service July 29, 2024 Pronouncement Note Admission Date July 27, 2024 Date and Time of Date of : 07/29/24 Time of : 14:05 Preliminary Cause of (1) SDH (subdural hematoma): Summary Upon entering the room, patient was found to be in a terminal state. They were unresponsive to, and did not withdrawal from, verbal or tactile stimuli. They were unresponsive to corneal, pupillary, and oculocephalic reflexes. On cardiopulmonary exam, they were found to be without detectable carotid pulses, and without spontaneous heart tones or respirations. Additional Data Confirmation of : no pulse, no respirations, no heart sounds and pupils fixed and dilated Pronouncement Performed By: Advanced Practice Provider ([email or web address]) Family: at bedside Attending physician: Silvana Ozuna MD Coding Level of Care Code 01228 INP/OBS DISCH >30 MIN Diagnoses SDH (subdural hematoma) S06.5XAA
--- NOTE | 2024-07-29 17:06 | Discharge Summary ---
Discharge Summary Date of Service July 29, 2024 Principal Dx & Hospital Course #1 = Principal Diagnosis (1) SDH (subdural hematoma): Patient was found by slumped backward on the commode in the restroom at [place]. EMS found the patient bradycardic and had vomited. She was externally paced, given atropine, calcium, Narcan, and intubated prior to presenting to the ED. EMS also reported decerebrate posturing. - CT head on admission revealed large acute left-sided subdural hematoma measuring 2.2 cm, with a 1.8 cm left to right midline shift. *Compression of brain - Patient remained intubated on the ventilator and was admitted to ICU. - Family then decided to transition to comfort measures only. Palliative extubation performed at that time. - Patient given comfort measures including morphine gtt, and as needed atropine drops, glycopyrrolate, lorazepam, morphine, Zofran - Patient ultimately on 07/29/2024 at 14:05 with multiple family members present at bedside. Admission HPI Per Admitting Provider The patient is an 84-year-old female with a past medical history including paroxysmal atrial fibrillation/flutter, hypertension, COPD, allergic rhinitis, on chronic anticoagulation, who was found unresponsive as noted above. CT scan of head showed a large subdural hematoma with shift. The patient is intubated, and family wishes that she be kept alive until her daughter arrives from out of town. Admission Exam Per Admitting Provider The patient is unresponsive, and intubated on the ventilator. HEENT--PERRL, EOMI, mucous membranes and oropharynx dry. Neck--supple. No JVD. No bruits. Thyroid normal, trachea midline, no adenopathy. Heart--bradycardic. No murmurs, rubs or gallops. Lungs--decreased breath sounds left base. No respiratory distress, no accessory muscle use. Abdomen--normal bowel sounds and soft. Nontender. Nondistended. Obese Extremities--No edema. Dermatologic--normal skin turgor, normal color, no abnormal lymph nodes, no rash. Neurologic--limited exam. Rheumatologic--limited exam Psychiatric--unresponsive and intubated Discharge Exam Upon entering the room, patient was found to be in a terminal state. They were unresponsive to, and did not withdrawal from, verbal or tactile stimuli. They were unresponsive to corneal, pupillary, and oculocephalic reflexes. On cardiopulmonary exam, they were found to be without detectable carotid pulses, and without spontaneous heart tones or respirations. Discharge Plan Discharge Items Patient Disposition: Other Date/Time: 07/29/24 14:05 Hospital Stay Data Consultations 07/27/24 22:03 ED Decision to Admit Stat 07/28/24 01:05 Consult Asthma Educator Routine Diagnostic Imagining Performed Chest X-Ray 07/27/24 21:24 SUPINE PORTABLE AP CHEST RADIOGRAPH CLINICAL HISTORY: Sepsis. COMPARISON STUDY: Chest radiograph December 17, 2022. FINDINGS: Tip of endotracheal tube is at the malou. The tube could be withdrawn 2.5 cm. There is no pneumothorax on supine exam. Multifocal left lung opacities are present. Cardiomediastinal silhouette is unremarkable on supine exam. No evidence for pulmonary edema. IMPRESSION: 1. Tip of endotracheal tube at the malou. The tube could be withdrawn 2.5 cm. 2. Multifocal opacities which could reflect atelectasis or pneumonia/aspiration pneumonitis. Radiographic follow-up to ensure resolution is recommended. 3. No pneumothorax. ACT 112: Negative or not required by law. Electronically signed by: Charan Molina M.D. 07/28/2024 6:[address] 07/27/24 21:24 CR Exam(s): CT HEAD Without Contrast EXAM: CT Head Without Intravenous Contrast CLINICAL HISTORY: Reason for exam: unresponsive. TECHNIQUE: Axial computed tomography images of the head/brain without intravenous contrast. CTDI is 29.23 mGy and DLP is 448.01 mGy-cm. Automated exposure control was utilized for the study. A dose lowering technique was utilized adhering to the principles of ALARA. COMPARISON: No relevant prior studies available. FINDINGS: Brain: There is the large acute left-sided subdural hematoma measuring 2.2 cm. There is a 1.8 cm left to right midline shift. No significant white matter disease. Ventricles: There is a trace amount of periventricular white matter low density and slight prominence of the temporal horn of the right lateral ventricle suggesting developing hydrocephalus. Bones/joints: Unremarkable. No acute fracture. Soft tissues: Unremarkable. Sinuses: Unremarkable as visualized. No acute sinusitis. Mastoid air cells: Unremarkable as visualized. No mastoid effusion. IMPRESSION: 1. There is the large acute left-sided subdural hematoma measuring 2.2 cm. There is a 1.8 cm left to right midline shift. 2. There is a trace amount of periventricular white matter low density and slight prominence of the temporal horn of the right lateral ventricle suggesting developing hydrocephalus. Communications: Call Doctor Intracranial Hemorrhage Electronically signed by: Kev Phipps MD 07/27/24 22:17 PM Supervising Physician Co-Signing Physician Notes PA Supervision Note: I did not personally see or examine the patient today, but I verified all monroy points of RADHA Jules' assessment and plan with the following exceptions/additions: None Total Time Total Time Spent Total Time Spent (In Minutes): Greater than 30 minutes spent completing this discharge process including direct patient care, medication reconciliation, documentation, review of labs and images, and coordination of care. Coding Level of Care Code 36480 IN/OBS DISCH 30 MIN/LESS Diagnoses SDH (subdural hematoma) S06.5XAA Time Spent (min) 30
== END 2024-07-29 16:33 | disposition expired | DRG 64 ==
LOC: ED 21:20 → SUATTDRO 23:50 → 1E 23:50 → 3E 07-28 04:39
DX: Z66 Do not resuscitate; Z79.51 Long term (current) use of inhaled steroids; J30.9 Allergic rhinitis, unspecified; J96.90 Respiratory failure, unspecified, unspecified whether with hypoxia or hypercapnia; Z88.0 Allergy status to penicillin; I48.92 Unspecified atrial flutter; J44.9 Chronic obstructive pulmonary disease, unspecified; G93.5 Compression of brain; I62.01 Nontraumatic acute subdural hemorrhage; I10 Essential (primary) hypertension; Z51.5 Encounter for palliative care; Z79.899 Other long term (current) drug therapy; I48.0 Paroxysmal atrial fibrillation; Z79.01 Long term (current) use of anticoagulants